=== PATIENT | female | born 1995 | race Caucasian/White ===

== ENCOUNTER → 2017-03-31 | Day surgery (SDC) | payer OTHER ==
[~2017-03-31] MED LIST: NITROFURANTOIN100 M3 PO; PRENATAL DHA200 MG PO; PRENATAL VITAM1 EAC4
--- NOTE | ~2017-03-31 | EKG ---
PATIENT: CRISTINO CAIN UNIT #: [id number] Ventricular Rate: 84 BPM Atrial Rate: 84 BPM P-R Interval: 172 ms QRS Duration: 86 ms Q-T Interval: 366 ms QTC Calculation(Bezet): 432 ms P [place]: 53 degrees Calculated R [place]: 62 degrees Calculated T [place]: 55 degrees Diagnosis Line: Normal sinus rhythm with sinus arrhythmia Diagnosis Line: Normal ECG Diagnosis Line: No previous ECGs available Diagnosis Line: Confirmed by LANI PAULINO MD ([id number]) on Diagnosis Line: 03/31/2017 9:55:37 AM INTERPRETING MD: LORA MAXWELL
--- NOTE | ~2017-03-31 | OR ---
Unit #: [id number] #: [id number] Patient: CRISTINO CAIN [id number] [address] [place], [place] [address] [id number] O MR#: [id number] NAME: CRISTINO CAIN ROOM: Date of Procedure: 03/31/2017 Admission Date: 03/31/2017 Surgeon: Mazin Long Jr., M.D. : 1995 Attending Physician: Mazin Long Jr., M.D. Primary Care Physician: Chantal Hickey M.D. OPERATIVE REPORT INDICATIONS FOR PROCEDURE The patient is a 21-year-old white female, who is approximately 8 months status post delivery of a healthy baby, who has developed a bulge just to the left of the umbilicus, felt to possibly be an umbilical hernia or ventral hernia or possibly lipomatous fat. She is brought in this time for exploration of this area and possible hernia repair. She understands the procedure including risks, including that of infection, recurrence, chronic pain, intra-abdominal organ injury, and poor healing and consents. PREOPERATIVE DIAGNOSIS Possible ventral hernia. POSTOPERATIVE DIAGNOSIS Small umbilical hernia with approximately 1.5 cm defect with some lipomatous fat to the left of this area. ANESTHESIA General with LMA. PROCEDURE PERFORMED Open exploration of abdominal wall with reduction and repair of umbilical hernia and removal of lipomatous fat. DESCRIPTION OF PROCEDURE The patient was positioned in the supine position. After being anesthetized, he was prepped and draped in routine fashion for exploration of her abdominal wall near the umbilical region. A keyhole incision was made inferior to the umbilicus, this was carried down through subcutaneous tissue. The lipomatous fat being encountered over to the left of the umbilicus, where she thought there had been a bulge. The lipomatous fat was removed down to the fascia and there was no evidence of any hernia defect in this area. This was all done with the Bovie cautery as well as Metzenbaum scissors. After this was complete, the umbilicus was freed up and there was a small umbilical hernia present. The umbilicus was freed from the posterior aspect of the umbilical skin with a #10 blade scalpel and the hernia defect itself was approximately 1.5 cm in diameter. A small Ventralex mesh was placed under the muscle and brought up against the muscle internally and the straps tacked to the fascia with interrupted 0 Ethibond sutures. The straps were excised and the fascial defect closed with three separate interrupted 0 Ethibond suture using modified Chuck-Lai type stitches. The wound was irrigated. After hemostasis achieved with Bovie cautery, the umbilicus was tacked back down to the fascia and the Unit #: [id number] #: [id number] Patient: CRISTINO CAIN subcutaneous tissue approximated with interrupted 3-0 Vicryl sutures. Skin edges approximated with a 4-0 Vicryl subcuticular stitch. Steri-Strips and sterile dressing were applied externally. Estimated blood loss was less than 50 mL. The patient received less than 1000 mL crystalloid solution during the procedure. Sponges and instrument counts were correct x3. No drains used. No complications. The patient was taken to the recovery room with stable vital signs in satisfactory condition. Dictated by... Mazin Long Jr., M.D. JMB/cassi TD: 03/31/2017 11:36 JOB #: [id number] CC: Chantal Hickey M.D. OPERATIVE REPORT Page 1 of 1 X Mazin Long MD X PROCEDURE OPERATIVE NOTE
[2017-03-31 06:48] LABS: URINE APPEARANCE CLOUDY; URINE BILIRUBIN NEG (NEG); URINE BLOOD 3+ (NEG); URINE COLOR DK YELLOW; URINE GLUCOSE NEG (NEG); URINE KETONE NEG (NEG); URINE LEUKOCYTE ESTERASE 1+ (NEG); URINE NITRATE NEG (NEG); URINE PROTEIN 1+ (NEG); URINE SPECIFIC GRAVITY 1.033 (1.003-1.035)
[2017-03-31 06:51] LABS: CULTURE INDICATED? YES; URINE BACTERIA AUWI 1+ (NEGATIVE); URINE SQUAMOUS EPITHELIAL CELL MOD /[HPF]; UWBCS1 AUWI 25-50 (0-5)
[2017-03-31 06:52] LABS: HEMATOCRIT 34.5 % (35.0-45.0); HEMOGLOBIN 11.4 gm/dL (12.0-16.0); MEAN CELL VOLUME 81.3 FL (83-96); MEAN CORPUSCULAR HEMOGLOBIN 26.8 PG (28-34); MEAN PLATELET VOLUME 8.2 FL (6.5-11.5); RED BLOOD COUNT 4.24 X10e (3.90-5.30); RED CELL DISTRIBUTION WIDTH 15.5 % (11.0-15.5); WHITE BLOOD COUNT 6.4 X10e3 (4.0-10.5)
[2017-03-31 07:03] LABS: URINE MUCUS PRESENT
== END | disposition home or self-care (01) ==
LOC: CSUR 05:40
PROVIDERS: Surgery
DX: K42.9 Umbilical hernia without obstruction or gangrene (principal); J45.909 Unspecified asthma, uncomplicated; D17.1 Benign lipomatous neoplasm of skin and subcutaneous tissue of trunk; F41.9 Anxiety disorder, unspecified; Z88.8 Allergy status to other drugs, medicaments and biological substances; Z79.899 Other long term (current) drug therapy
CPT/HCPCS: 81003; 84703; 85027; 87086; 88304; 93005; J0690; J1100; J2175; J2250; J2405; J3010